=== PATIENT | female | born 1985 | race African-American/Black ===

== ENCOUNTER 2016-07-29 08:50 | Emergency (ER) | payer OTHER ==
[2016-07-29 09:03] VITALS: BP 133/72; PULSE 79; TEMP 97.8; BMI 36.4
--- NOTE | 2016-07-29 09:25 | EDPRACDOC ---
- General Information Chief Complaint: Flu-Like Symptoms Stated Complaint: COUGH/SORE THROAT/ DIARRHEA Time Seen by Provider: 07/29/16 09:19 Information Source: Patient Home Medications: Home Medications Medroxyprogesterone Acet [Depo-Provera] 150 mg IM .[id number] 02/28/16 Tramadol HCl [Ultram] 50 - 100 mg PO Q6 #15 tablet 03/17/16 Dicyclomine HCl [Bentyl] 20 mg PO Q6H #120 tab 04/02/16 Promethazine [Phenergan] 25 mg PO Q6 PRN #10 tab 04/02/16 Promethazine Dextromethorphan [Phenergan DM] 5 ml PO Q6 PRN #120 ml 07/29/16 Allergies/Adverse Reactions: Allergies Allergy/AdvReac Type Severity Reaction Status Date / Time acetaminophen Allergy bruises Verified 03/16/16 19:48 [From Darvocet-N 100] oxycodone [Oxycodone] Allergy Hives* Verified 03/16/16 19:48 propoxyphene napsylate Allergy bruises Verified 03/16/16 19:48 [From Darvocet-N 100] - History of Present Illness Onset: TUESDAY HPI: PT COMPLAINS OF COUGH PROD OF YELLOW PHLEGM, SORE THROAT, HAD FEVER AND DIARRHEA OVER THE WEEKEND. Current Symptoms: Reports: Cough, Fever, Headache, Nasal Symptoms, Sore Throat, Myalgia, Nausea Shortness of Breath: None Cough: Reports: Productive, Yellow Rhinorrhea: Reports: Clear Ear Symptoms: Reports: None Fever Severity/Quality: Reports: subjective Oral Intake: Normal Urinary Output: Normal Relevant History of: None Associated Signs & Symptoms:: Reports: Cough, Fever, Headache, Nasal Symptoms, Sore Throat, Nausea, Diarrhea, Myalgia ED Past Medical History - History Reviewed Yes Nurses notes reviewed and agree except as marked - Patient Medical History GI/ History: Denies: Urinary Tract Infection Psychological History: Reports: Depression Systemic History: Denies: Cancer, Anemia, Lupus Surgical History: Reports: Other (BENIGN CYSTS REMOVED FROM CHEST, FEET, BREAST) . Denies: Hysterectomy - Family Medical History Reports: Hypertension (MOM, MGM, UNCLE). Denies: Diabetes, Cancer, Stroke, Cardiac Disorders - Social Medical History Smoking Status: Former smoker ETOH: None Substance Abuse: None EDM Review of Systems - Review of Systems Constitutional: Fever. negative: Chills Eyes: negative: Blurred Vision, Double Vision Ears: negative: Drainage, Pain Throat: Pain Nose: Congestion. negative: Discharge Respiratory: Cough. negative: Shortness of Breath, Wheezing Cardiovascular: negative: Chest Pain, Palpitations Gastrointestinal: Diarrhea. negative: Nausea, Pain, Vomiting Genitourinary: negative: Dysuria, Frequency Neurological: Headache. negative: Dizziness, Numbness, Weakness Musculoskeletal: No Symptoms Reported Integumentary: No Symptoms Reported - Physical Exam Constitutional: Alert (Awake), No apparent distress Oriented to: Time, Person, Place Last recorded Vital Signs: Last Vital Signs Temp 97.8 F 07/29/16 08:59 Pulse 79 07/29/16 08:59 Resp 20 07/29/16 08:59 BP 133/72 07/29/16 08:59 Pulse Ox 98 07/29/16 08:59 Oxygen Pulse Oxygen Saturation 98 O2 Device Room Air Oxygen Flow Rate Fraction of Inspired Oxygen ( FIO2) - HEENT Head: Normal ( normocephalic) Eye Exam: Normal (PERRL, EOMI, Sclera white) Oropharynx: Red. negative: Tonsillar Hypertrophy, [place] Tympanic Membrane: Dull ENT EAC: Normal TMJ: Normal Nose: No Symptoms Reported (septum midline) Neck: Normal (FROM, trachea at midline) - Respiratory/Cardiovascular Respiratory: Normal - CTA (BBS clear to auscultation without adventitious sounds ) Cardiovascular: Normal (RRR without murmur, gallop or rub) - Integumentary Skin: Normal, Warm, Dry Lymphatics: Normal (no adenopathy) - Neurologic Memory Impaired: Normal Motor Function: Normal (Normal tone, Pulses 2+ No cyanosis or edema, FROM) Cranial Nerve: Normal (CN II-X11 intact sensation, strength 5/5) Cerebellar: Normal Mood Description: Normal Perception: Normal - Differential Diagnosis Bronchitis, Influenza A B, Otitis Media, Pneumonia, Sinusitis, URI Decision Time to Discharge: 09:25 - Departure Disposition: Home Condition: Stable Final Diagnosis: Acute upper respiratory infection Instructions: Upper Respiratory Infection (ED) Education/Counseling Given To: Patient Education/Counseling Given Regarding: Diagnosis, Treatment, Prognosis, Follow Up Referrals: Young Mora MD [Staff Physician] - One Week Prescriptions: Promethazine Dextromethorphan [Phenergan DM] 5 ml PO Q6 PRN #120 ml PRN Reason: Cough Forms: Excuse Note Additional Instructions: Rest, drink plenty of fluids, use Tylenol every 4 hours and Motrin every 6 hours as needed for pain or fever, return to the ED for any worsening symptoms or concerns.
== END 2016-07-29 09:57 | disposition home or self-care (01) ==
LOC: ED 08:50
DX: J06.9 Acute upper respiratory infection, unspecified (principal)
CPT/HCPCS: 99282

== ENCOUNTER 2016-08-09 21:58 | Emergency (ER) | payer OTHER ==
[2016-08-09 22:06] VITALS: TEMP 97.9; BMI 36.1
--- NOTE | 2016-08-09 22:59 | EDPRACDOC ---
- General Information Chief Complaint: Flu-Like Symptoms Stated Complaint: VOMITING/DIARRHEA ACHING ALL OVER Time Seen by Provider: 08/09/16 22:53 Information Source: Patient Home Medications: Home Medications Medroxyprogesterone Acet [Depo-Provera] 150 mg IM .[id number] 02/28/16 Tramadol HCl [Ultram] 50 - 100 mg PO Q6 #15 tablet 03/17/16 Dicyclomine HCl [Bentyl] 20 mg PO Q6H #120 tab 04/02/16 Promethazine [Phenergan] 25 mg PO Q6 PRN #10 tab 04/02/16 Promethazine Dextromethorphan [Phenergan DM] 5 ml PO Q6 PRN #120 ml 07/29/16 Ondansetron [Zofran Odt] 4 mg PO TID PRN #10 tab.rapdis 08/09/16 Oseltamivir Phosphate [Tamiflu] 75 mg PO BID #10 capsule 08/09/16 Allergies/Adverse Reactions: Allergies Allergy/AdvReac Type Severity Reaction Status Date / Time acetaminophen Allergy bruises Verified 03/16/16 19:48 [From Darvocet-N 100] oxycodone [Oxycodone] Allergy Hives* Verified 03/16/16 19:48 propoxyphene napsylate Allergy bruises Verified 03/16/16 19:48 [From Darvocet-N 100] - History of Present Illness Onset: 5 mins [employer] DEV[employer] HPI: 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 Denies fever, sob, cp, nasal congestion, earaches, chnages in urine. Med hx = none. Shortness of Breath: None Relevant History of: Reports: None Cough: Reports: Productive, Yellow Rhinorrhea: Denies: Clear, Bloody, Brown, Green, Purulent, None, O Fever Severity/Quality: Reports: no fever Ear Symptoms: Reports: None Recently treated infections: Denies: Otitis media, Pneumonia, URI Associated Signs & Symptoms: Reports: Cough Oral Intake: Normal Urinary Output: Normal ED Past Medical History - History Reviewed Yes Nurses notes reviewed and agree except as marked - Patient Medical History GI/ History: Denies: Urinary Tract Infection Psychological History: Denies: Depression Systemic History: Denies: Cancer, Anemia, Lupus Surgical History: Reports: Other (BENIGN CYSTS REMOVED FROM CHEST, FEET, BREAST) . Denies: Hysterectomy - Family Medical History Reports: Hypertension (MOM, MGM, UNCLE). Denies: Diabetes, Cancer, Stroke, Cardiac Disorders - Social Medical History Smoking Status: Never smoker EDM Review of Systems - Review of Systems ROS Negative Except as Marked: Yes All systems reviewed and were negative except as marked Respiratory: Cough Gastrointestinal: Diarrhea, Nausea, Vomiting Musculoskeletal: Other (body aches) - Physical Exam Constitutional: No apparent distress, Alert Oriented to: Time, Person, Place Last recorded Vital Signs: Last Vital Signs Temp 97.9 F 08/09/16 22:01 Pulse 95 08/09/16 22:01 Resp 20 08/09/16 22:01 BP 140/65 08/09/16 22:01 Pulse Ox 99 08/09/16 22:01 Oxygen Pulse Oxygen Saturation 99 O2 Device Room Air Oxygen Flow Rate Fraction of Inspired Oxygen ( FIO2) - HEENT Head: Normal Eye Exam: negative: Conjunctival Injection, Scleral Icterus Oropharynx: negative: Drooling TMJ: Normal Nose: No Symptoms Reported Neck: Normal - Respiratory/Cardiovascular Respiratory: Normal - CTA Cardiovascular: Normal - GI Auscultation: Normal Palpation: Normal Tenderness: Non tender - Musculoskeletal Back: Normal Extremities: Normal - Integumentary Skin: Normal - Neurologic Mood Description: Normal Thought: Coherent Perception: Normal Decision Time to Discharge: 22:59 - Departure Disposition: Home Condition: Stable Final Diagnosis: Flu-like symptoms Instructions: Upper Respiratory Infection (ED), Dysuria Education/Counseling Given To: Patient Education/Counseling Given Regarding: Diagnosis, Treatment, Prognosis, Follow Up Referrals: Art Bernstein MD [Staff Physician] - One Week Prescriptions: Ondansetron [Zofran Odt] 4 mg PO TID PRN #10 tab.rapdis PRN Reason: Nausea/Vomiting Oseltamivir Phosphate [Tamiflu] 75 mg PO BID #10 capsule Forms: Excuse Note
[2016-08-09] MEDS ORDERED: ONDANSETRON HCL 4 MG ODT TAB PO ONE (23:04)
[2016-08-10 00:36] VITALS: BP 135/70; PULSE 90
== END 2016-08-10 00:35 | disposition home or self-care (01) ==
LOC: ED 21:58
DX: R11.10 Vomiting, unspecified (principal); R19.7 Diarrhea, unspecified; Z79.899 Other long term (current) drug therapy; R52 Pain, unspecified
CPT/HCPCS: 99283; J3490